=== PATIENT | male | born 1990 ===

== ENCOUNTER 2017-10-07 19:15 | Emergency (ER) | payer OTHER ==
[2017-10-07 19:16] VITALS: BMI 22.8
[2017-10-07 19:36] VITALS: BP 122/80; PULSE 76; RESP 20; TEMP 98.8; O2SAT 99
--- NOTE | 2017-10-07 20:00 | C.PDOC ---
History Of Present Illness 27 yo male w/o significant PMHx come in for evaluation of diffuse back pain gradually developed for past 4 days. Pt reports, "pain initially started from lower back area and spread to B/L neck area". Pt reports, pain is intermittent, worse with movement. Pt denies known direct trauma or injury, fever, chills, sore throat, headache, dizziness, CP, SOB, dyspnea, diaphoresis, palpitation, abd. pain, V/D, denies weakness, sensory or vascular deficits to B?L UEs and LEs , denies saddle anesthesia, incontinence, UTI sx. Ambulate to Ed for evaluation , not in nay apparent distress. Time Seen by Provider: 10/07/17 19:44 Chief Complaint (Nursing): Back Pain History Per: Patient Past Medical History Reviewed: Historical Data, Nursing Documentation, Vital Signs Vital Signs: Last Vital Signs Temp 98.8 F 10/07/17 19:33 Pulse 76 10/07/17 19:33 Resp 20 10/07/17 19:33 BP 122/80 10/07/17 19:33 Pulse Ox 99 10/07/17 20:41 - Medical History PMH: No Chronic Diseases Surgical History: No Surg Hx Family History: States: No Known Family Hx - Social History Hx Tobacco Use: No Hx Alcohol Use: Yes Hx Substance Use: No - Immunization History Hx Tetanus Toxoid Vaccination: No Hx Influenza Vaccination: No Hx Pneumococcal Vaccination: No Review Of Systems Except As Marked, All Systems Reviewed And Found Negative. Constitutional: Negative for: Fever, Chills Eyes: Negative for: Vision Change ENT: Negative for: Ear Discharge, Throat Pain, Throat Swelling Cardiovascular: Negative for: Chest Pain, Palpitations, Light Headedness Respiratory: Negative for: Cough, Shortness of Breath, Hemoptysis Gastrointestinal: Negative for: Nausea, Vomiting, Abdominal Pain, Diarrhea Genitourinary: Negative for: Dysuria, Frequency, Incontinence Musculoskeletal: Positive for: Neck Pain, Back Pain Skin: Negative for: Rash, Bruising Neurological: Negative for: Weakness, Numbness, Altered Mental Status, Headache , Dizziness Physical Exam - Physical Exam Appears: Well, Non-toxic, No Acute Distress Skin: Normal Color, Warm, Dry, No Rash, No Ecchymosis Head: Normacephalic Eye(s): bilateral: PERRL Nose: No Flaring, No Discharge Oral Mucosa: Moist Throat: No Erythema Neck: Normal ROM, Trachea Midline, No Midline Cervical Tenderness, No Step Off Deformity, Supple, Other (L>R lateral cervical tenderness over trapezium muscle with mod spasm. No midline tendreness, no skin changes.) Cardiovascular: Rhythm Regular, No Murmur, No JVD Respiratory: No Decreased Breath Sounds, No Accessory Muscle Use, No Stridor, No Wheezing Gastrointestinal/Abdominal: Soft, No Tenderness Back: No CVA Tenderness, No Vertebral Tenderness, Paraspinal Tenderness ( diffuse lumbar with mild muscle spasm.) Extremity: Normal ROM, No Pedal Edema, No Deformity, No Swelling Neurological/Psych: Oriented x3, Normal Speech, Normal Motor, Normal Sensation, Normal Reflexes ED Course And Treatment O2 Sat by Pulse Oximetry: 99 Pulse Ox Interpretation: Normal Progress Note: On re-evaluation, pt is afebrile, hemodynamicaly stable. Non- toxic. Ambulatory in ED with stable gait. PulsEOx 99% RA. ENT: no acute findings. Neck: Supple, (-) midline tenderness, (-) JVD. Lungs: CTA B/L, BS dequal B/L. CVS: (+)S1S2, reg. Abd: benign. Back: (-) CVA tenderness. Neurologicaly intact. UA results review, normal study. Pt has clinical findings c/w cervical and lumbar strain. Pt advised. ref. to f/u with PMD in 2 -3 days for re-evaluation. return to ED if any worsening or new changes. Disposition Counseled Patient/Family Regarding: Studies Performed, Diagnosis, Need For Followup, Rx Given - Disposition Referrals: [facility] [Outside] Disposition: HOME/ ROUTINE Disposition Time: 20:10 Condition: STABLE Additional Instructions: Take pain medication as need as prescribed Light duty to back area, avoid bending forwards, heavy lifting etc for 1-2 weeks Follow up with PMD in 2-3 days for re-evaluation. return to ED if any worsening or new changes. Prescriptions: Ibuprofen [Motrin Tab] 600 mg PO TID #20 tab Methocarbamol [Robaxin] 500 mg PO TID #14 tab traMADol [Ultram] 50 mg PO TID #7 tab Instructions: Muscle Strain, Upper Back Pain, Lumbar Muscle Strain Forms: [employer] (Lao) - Clinical Impression Clinical Impression: Low back strain, Cervical strain
[2017-10-07 20:15] LABS: URINE BILIRUBIN NEGATIVE (NEGATIVE); URINE BLOOD NEGATIVE (NEGATIVE); URINE CLARITY Hazy (Clear); URINE COLOR Yellow (YELLOW); URINE GLUCOSE (UA) NORMAL (Normal); URINE LEUKOCYTE ESTERASE NEG Leu/uL (Negative); URINE PROTEIN NEGATIVE (NEGATIVE)
== END 2017-10-07 20:53 | disposition home or self-care (01) ==
LOC: C.ER 19:15
DX: S39.012A Strain of muscle, fascia and tendon of lower back, initial encounter (principal); S16.1XXA Strain of muscle, fascia and tendon at neck level, initial encounter; X58.XXXA Exposure to other specified factors, initial encounter; Y92.9 Unspecified place or not applicable